=== PATIENT | female | born 1995 | race Caucasian/White ===

== ENCOUNTER 2017-11-23 19:44 | Emergency (ER) | payer BC ==
[~2017-11-23] VITALS: Ht 162.6 cm; Wt 54.4 kg
--- NOTE | 2017-11-23 19:58 | NUR ---
PT TO RESTROOM TO GIVE URINE SPECIMEN.
--- NOTE | 2017-11-23 19:59 | NUR ---
PT AMBULATED WITH STEADY GAIT TO ER BED 6. URINE SPECIMEN COLLECTED
--- NOTE | 2017-11-23 20:02 | NUR ---
PT BB BF FROM HOME WITH C/O OF RLQ ABD PAIN X 1 DAY RADIATING TO THE MID ABD REGION S/P "HAVING SEXUAL INTERCOURSE". PT STATES PAIN LEVEL 8/10. PT AAOX4. PT DENIES USING CONTROL PILL OR IUD'S. PT SKIN PINK AND WARM. RESP EVEN AND UNLABORED. NO S/S OF ACUTE DISTRESS NOTED. PT COMFORT MEASURES AND SAFETY IN PLACE. PT'S BF BEDSIDE. BEDSIDE FOR EVAL.
--- NOTE | 2017-11-23 20:08 | NUR ---
PHLEBOTOMY BEDSIDE FOR BLOOD SPCIMEN COLLECTION.
[2017-11-23] MEDS ORDERED: ONDANSETRON HCL/PF 4 MG/2 ML VIAL ONE (20:15)
[2017-11-23] MEDS ORDERED: MORPHINE SULFATE INJ 4 MG/ML DISP.SYRIN ONE (20:16)
[2017-11-23 20:17] LABS: LYMPHOCYTES # (AUTO) 1.7 /CMM (0.8-4.8)
--- NOTE | 2017-11-23 20:29 | NUR ---
PRELIMINARY SCHOOL PSYCHOLOGIST AND MD BEDSIDE FOR PT EVAL.
[2017-11-23] MEDS ORDERED: MORPHINE SULFATE INJ 2 MG/ML DISP.SYRIN IV ONE (20:30)
[2017-11-23] MEDS ORDERED: IV NS 0.9% 1,000 ML BAG IV ONE (20:30)
[2017-11-23] MEDS ORDERED: ONDANSETRON HCL/PF - ER 4 MG/2 ML VIAL IV ONE (20:30)
[2017-11-23 20:35] LABS: BASOPHILS % (AUTO) 0.2 % (0.0-2.0)
[2017-11-23 20:36] LABS: CALCIUM, SERUM 9.1 mg/dL (8.5-10.1); CREATININE 0.8 mg/dL (0.6-1.3); POTASSIUM 3.8 mmol/L (3.5-5.1)
[2017-11-23 20:39] LABS: EOSINOPHILS # (AUTO) 0.1 /CMM (0.0-0.7); EOSINOPHILS % (AUTO) 0.3 % (0.0-6.0); HEMATOCRIT 42 % (33-45); HEMOGLOBIN 14.2 g/dL (11.5-14.8); LYMPHOCYTES % (AUTO) 8.9 % (20.0-44.0); MEAN CORPUSCULAR HEMOGLOBIN 31 PG (26.0-33.0); MEAN CORPUSCULAR HGB CONC 34 g/dl (31.0-36.0); MEAN CORPUSCULAR VOLUME 93 fL (82-100); NEUTROPHILS # (AUTO) 16.4 /CMM (1.8-8.9); NEUTROPHILS % (AUTO) 85.6 % (43.0-81.0); PLATELET COUNT (AUTO) 297 /CMM (150-450); RDW COEFFICIENT OF VARIATION 12.3 (11.5-15.0); RED BLOOD CELL COUNT(AUTO) 4.54 MIL/uL (4.0-5.2); WHITE BLOOD COUNT (AUTO) 19.2 K/uL (4.3-11.0)
[2017-11-23 20:42] LABS: BILIRUBIN,DIRECT 0.2 mg/dL (0.0-0.2); BILIRUBIN,TOTAL 0.7 mg/dL (0.2-1.0); TOTAL PROTEIN, SERUM 7.9 g/dL (6.4-8.2)
[2017-11-23] MEDS ORDERED: KETOROLAC TROMETHAMINE INJ 30 MG/ML VIAL ONE (20:43)
--- NOTE | 2017-11-23 20:48 | NUR ---
MANAGER MARKETING SALES OUT OF PT'S ROOM.
[2017-11-23 20:50] LABS: ALBUMIN 4.1 g/dL (3.4-5.0)
[2017-11-23 20:58] LABS: APPEARANCE,URINE Clear (CLEAR); BILIRUBIN,URINE MODERATE (NEGATIVE); BLOOD, URINE Small Ery/uL (NEGATIVE); COLOR,URINE Dark (YELLOW); KETONES,URINE >=160 (NEGATIVE); LEUKOCYTE ESTERASE ,URINE Negative (NEGATIVE); NITRITE, URINE Negative (NEGATIVE); PROTEIN,URINE 100 mg/dl (NEGATIVE); UGLUCOSE Negative (NEGATIVE); UROBILINOGEN,URINE 0.2 EU/dL (0.2)
[2017-11-23] MEDS ORDERED: KETOROLAC TROMETHAMINE INJ 30 MG/ML VIAL IV ONE (21:00)
--- NOTE | 2017-11-23 21:00 | NUR ---
PT TO CT
--- NOTE | 2017-11-23 21:10 | NUR ---
PT BACK FROM CT. PT STATES SHE IS STILL IN PAIN. MD NOTIFIED.
[2017-11-23 21:12] LABS: BACTERIA,URINE None seen /HPF (None Seen); SQUAMOUS EPITHELIAL CELL,UR Few /HPF (None Seen); WBC,URINE 0-2 /HPF (0-3)
[2017-11-23] MEDS ORDERED: HYDROMORPHONE INJ 0.5 MG/0.5 ML SYRINGE ONE (21:14)
--- NOTE | 2017-11-23 21:20 | NUR ---
BEDSIDE SPEAKING WITH PT
[2017-11-23] MEDS ORDERED: HYDROMORPHONE INJ 0.5 MG/0.5 ML SYRINGE IV ONE (21:30)
--- NOTE | 2017-11-23 22:22 | NUR ---
Patient discharged to home in stable condition. Written and verbal after care instructions given. Patient verbalizes understanding of instruction.IV removed. Catheter intact and site benign. Pressure and 4x4 applied to site. No bleeding noted. Pt ambulated with steady gait out of ER accompanied by BF. Pt was instructed not to drive.
[2017-11-23 22:26] VITALS: BP 127/73
== END 2017-11-23 22:27 | disposition home or self-care (01) ==
LOC: ER 19:48
DX: N83.201 Unspecified ovarian cyst, right side (principal); F10.10 Alcohol abuse, uncomplicated; F17.200 Nicotine dependence, unspecified, uncomplicated
CPT/HCPCS: 36415; 74176; 76856; 80048; 80076; 81001; 83690; 84703; 85025; 96361; 96374; 96375; 99285; A4606; J1885; J2270; J2405 ×2; J7030; Z7610; 81000-TC

== ENCOUNTER 2019-10-17 07:55 | Emergency (ER) | payer BC ==
[~2019-10-17] VITALS: Ht 154.9 cm; Wt 48.1 kg
[2019-10-17 08:21] LABS: APPEARANCE,URINE SLIGHTLY HAZY (CLEAR); BILIRUBIN,URINE Negative (NEGATIVE); BLOOD, URINE Moderate Ery/uL (NEGATIVE); COLOR,URINE Dark (YELLOW); KETONES,URINE Negative (NEGATIVE); LEUKOCYTE ESTERASE ,URINE Negative (NEGATIVE); NITRITE, URINE Negative (NEGATIVE); PROTEIN,URINE Negative (NEGATIVE); UGLUCOSE Negative (NEGATIVE)
[2019-10-17] MEDS ORDERED: IV NS 0.9% 1,000 ML BAG IV ONE (08:30)
[2019-10-17 08:31] LABS: SQUAMOUS EPITHELIAL CELL,UR Many /HPF (None Seen)
[2019-10-17 08:32] LABS: BACTERIA,URINE Many /HPF (None Seen)
[2019-10-17 08:33] LABS: WBC,URINE 0-2 /HPF (0-3)
[2019-10-17 08:34] LABS: BASOPHILS % (AUTO) 0.3 % (0.0-2.0); EOSINOPHILS % (AUTO) 0.4 % (0.0-6.0); HEMATOCRIT 48 % (33-45); LYMPHOCYTES # (AUTO) 2.4 /CMM (0.8-4.8); LYMPHOCYTES % (AUTO) 19.4 % (20.0-44.0); MEAN CORPUSCULAR HGB CONC 33 g/dl (31.0-36.0); MEAN CORPUSCULAR VOLUME 97 fL (82-100); MONOCYTES # (AUTO) 0.5 /CMM (0.1-1.30); MONOCYTES % (AUTO) 3.7 % (2.0-12.0); NEUTROPHILS # (AUTO) 9.5 /CMM (1.8-8.9); NEUTROPHILS % (AUTO) 76.2 % (43.0-81.0); PLATELET COUNT (AUTO) 358 /CMM (150-450); WHITE BLOOD COUNT (AUTO) 12.5 K/uL (4.3-11.0)
[2019-10-17 08:42] LABS: CARBON DIOXIDE 24 mmol/L (21-32); CHLORIDE 106 mmol/L (98-107); CREATININE 0.7 mg/dL (0.6-1.3); GLUCOSE 86 mg/dL (74-106); POTASSIUM 4.2 mmol/L (3.5-5.1); SODIUM SERUM 143 mmol/L (136-145); UREA NITROGEN, BLOOD 9 mg/dL (7-18)
--- NOTE | 2019-10-17 08:43 | NUR ---
PT WALKED INTO EMERGENCY ROOM FOR OVERDOSE WITH SLEEPING PILLS AND ETOH. PT STATES FEELING DEPRESSED BUT DOES NOT WANT TO KILL HER SELF OR OTHERS. PT ACCOMPANIED BY FIREND AND IS ALERT WITH ORIENTATION X 4. PT SET UP ON HR LEADER [id number]. PIV AND FLUIDS STARTED. LABS INCLUDING URINE OBTAINED PT EVALUATED BY MD WILL CONTINUE TO MONITOR.
[2019-10-17 08:47] LABS: ALANINE AMINOTRANSFERASE 26 U/L (12-78); ALBUMIN 4.6 g/dL (3.4-5.0); ALCOHOL, BLOOD 90 mg/dL (0-0); ALKALINE PHOSPHATASE 68 U/L (46-116); ASPARTATE AMINOTRANSFERASE 27 U/L (15-37); BILIRUBIN,DIRECT 0.1 mg/dL (0.0-0.2); BILIRUBIN,TOTAL 0.3 mg/dL (0.2-1.0); TOTAL PROTEIN, SERUM 8.4 g/dL (6.4-8.2)
[2019-10-17 08:48] LABS: SALICYLATE 1.6 mg/dL (2.8-20.0)
[2019-10-17 08:49] LABS: ACETAMINOPHEN < 2 ug/ml (10-30)
--- NOTE | 2019-10-17 08:50 | NUR ---
PT REFUDSED X-RAY STATES SHE DOES NOT WANT TO PAY FOR IT.
[2019-10-17 09:01] LABS: CREATINE KINASE, TOTAL 76 U/L (26-192)
--- NOTE | 2019-10-17 10:35 | NUR ---
PT LABS DONE PENDING PET EVALUATION.
--- NOTE | 2019-10-17 10:43 | NUR ---
NOTIFIED PHOTOENGRAVING SKETCH MAKER TO PERFORM AN EVALUATION.
--- NOTE | 2019-10-17 11:04 | NUR ---
RESTING COMFORTABLY. FAMILY AT BEDSIDE. VSS.
--- NOTE | 2019-10-17 12:25 | NUR ---
BOND CLERK KAILA KIRBY AT BEDSIDE
--- NOTE | 2019-10-17 12:42 | NUR ---
PT EVALUATED BY PET TEAM DISCHARGED PENDING MEDICAL MD RE-EVALUATION FRIENDS PRESENT TO TAKE PT HOME WILL F/U WITH INSURANCE PSYCHIATRIST
[2019-10-17 13:03] VITALS: BP 150/95
== END 2019-10-17 13:03 | disposition home or self-care (01) ==
LOC: ER 07:55
DX: T42.72XA Poisoning by unspecified antiepileptic and sedative-hypnotic drugs, intentional self-harm, initial encounter (principal); F41.9 Anxiety disorder, unspecified; F31.9 Bipolar disorder, unspecified; R11.2 Nausea with vomiting, unspecified; F10.10 Alcohol abuse, uncomplicated; F17.200 Nicotine dependence, unspecified, uncomplicated; R00.0 Tachycardia, unspecified; F12.10 Cannabis abuse, uncomplicated; Y90.4 Blood alcohol level of 80-99 mg/100 ml; Y92.89 Other specified places as the place of occurrence of the external cause
CPT/HCPCS: 36415; 80048; 80076; 80305; 80307; 80329; 81001; 82550; 84703; 85025; 87086; 93005; 96360; 99284; G0480; J7030; 81000-TC